=== PATIENT | male | born 1975 | race Caucasian/White ===

== ENCOUNTER 2025-06-16 13:49 | Emergency (ER) | payer OTHER, SELFPAY ==
--- OUTSIDE RECORDS SUMMARY | 2025-06-16 13:55 | XMS_ITS | Clinical Summary ---
Author Organization [facility] [address] Address [address] [place] [address] Phone Care Team Providers [facility] Name Role Phone Daljit Lopez MD Primary Care Provider [phone] Eleonora Leonard Unavailable [phone] Allergies No known active allergies Medications lancets misc 100 each by other route as directed 100 each 1 3 Active Additional Information Patient not taking.Reported on 05/12/2025 omeprazole (PriLOSEC) 20 mg capsule TAKE 1 CAPSULE(20 MG) BY MOUTH DAILY 30 capsule 5 4 Active Additional Information Patient not taking.Reported on 05/12/2025 ergocalciferol (VITAMIN D) 50,000 unit capsuleIndicati ons:Vitamin D Deficiency Take 1 capsule (50,000 Units total) by mouth once a week 12 capsule 4 10/22/20 25 Active Additional Information Patient not taking.Reported on 05/12/2025 gabapentin (NEURONTIN) 300 mg capsuleIndicati ons:Chronic bilateral low back pain without sciatica Take 1 capsule (300 mg total) by mouth 2 (two) times a day 180 capsule 3 4 Active Additional Information Patient not taking.Reported on 05/12/2025 glipiZIDE (GLUCOTROL) 10 mg tabletIndicatio ns:type 2 diabetes mellitus Take 1 tablet (10 mg total) by mouth 2 (two) times a day with lunch and dinner 180 tablet 3 5 05/12/20 26 Active metFORMIN XR (GLUCOPHAGE XR) 500 mg 24 hr tabletIndicatio ns:Type 2 diabetes mellitus with hyperglycemia, with long-term current use of insulin (HCC) Take 2 tablets (1,000 mg total) by mouth 2 (two) times a day with meals 360 tablet 3 5 05/12/20 26 Active atorvastatin (LIPITOR) 40 mg tabletIndicatio ns:Dyslipidemia associated with type 2 diabetes mellitus (HCC) Take 1 tablet (40 mg total) by mouth daily 90 tablet 3 5 Active Dexcom G7 Sensor deviceIndicatio ns:Type 2 diabetes mellitus with hyperglycemia, with long-term current use of insulin (HCC) Use one sensor every 10 days 3 each 11 5 Active Active Problems Problem Noted Date Diagnosed Date Annual physical exam 10/10/2024 Assessment & Plan (10/10/2024 1:19 PM BOOSTER PUMP OPERATOR): In regard to health maintenance, Colonoscopy declined PSA stable DM-annual visual examination and podiatry visits every 3 months advised. Lung CA screening ordered Eat a healthy diet: focus on lean meats and proteins, more fruits, vegetables and whole grains and low in sugars and fats. Limit red meat and avoid processed meat. Maintain a healthy weight; avoid being overweight. Aim for a normal body mass index (BMI) of 18.5-24.9. Help learning to eat healthier, we can set up appointment with federal law clerk/envelope fold operator. Have an active lifestyle, strive for 30 minutes of moderate exercise 5 times a week and strength or resistance training at least twice a week. Use broad-spectrum (UVA+UVB) sunscreen with SPF 30 or greater, is water resistant, limit time spent in the sun (10 am-4pm), wear hat, wear UV protective clothing, wear sunglasses. Never use a tanning bed. Skin that was irradiated may be more sensitive over your lifetime. Do not smoke or chew tobacco; participate in a smoking cessation program. Limit alcohol intake, 1 drink per day for a woman and 2 drinks per day for a man. Mild emphysema 07/19/2022 Assessment & Plan (10/27/2022 6:33 PM BOOSTER PUMP OPERATOR): Patient reports that his cough and shortness of breath have improved significantly. Will use Flovent inhaler as needed. Typically using rescue albuterol inhaler 1-2 times per week. Denies any recent exacerbation/illness. Assessment & Plan (07/19/2022 12:55 PM CDT): Continues to smoke cigarettes but has dropped to 1/2-3/4 PPD. Has now started to vape (to help stop smoking?) 1-2x/hr. Stressed need to stop both. Reviewed mild emphysema on past CT. Referral to Dr Walker. Contact info given to Mr & Mrs Perry. Cough with hemoptysis 03/31/2022 Assessment & Plan (03/31/2022 1:27 PM CDT): Long standing h/o smoking. Relates that he will never stop. Recently started cough w/hemoptysis. CT chest wo contrast ordered. Aware that insurance must authorize CT. He will be called once it is authorized for him to schedule. Aware to call/michaelt msg our office if no call rec'd re: CT. [facility] scheduling # given. Diabetes mellitus with hyperglycemia 12/24/2021 Assessment & Plan (02/17/2025 2:37 PM CDT): Chronic problem. A1c improved from 16.3% 10/04/24 to now 10.2% -Start your medication everyday. You can take all of your metformin at one time (every morning). -glipizide take with meals only--don't take if not eating -toujeo 20 units daily--doesn't matter to me what day. If your blood sugars start to go low--stop the glipizide but keep taking the Metformin & Toujeo. Current medications: Metformin XR 1000mg twice daily with meals Glipizide 10mg twice daily with meals Toujeo 20 units daily DM eye exam due. To call to schedule. UTD on labs. Discussed with Adam Perry: Strive for regular exercise (30min most days) and diet (get at least 4-5 servings of fruit and veggies daily, avoid processed foods, increase lean protein intake and decrease carb portions as well as fruit juices, regular soda & desserts). Watch carbs and simple sugars. Check the blood sugar: Dexcom G7. Check the feet daily for skin breakdown and infection. Assessment & Plan (10/21/2024 10:55 AM BOOSTER PUMP OPERATOR): Chronic , Poorly controlled, worsening Hemoglobin A1c 16.3% Goal A1c at least less than 7% without hypoglycemia - discussed about DM type 2, - patho physiology, short and nursing home complications of uncontrolled DM, diet and exercise , importance on of BS monitoring, medications options - discussed goal BS and A1c targets - advise to start checking BS more often , pt willing to CGM - advise to work on healthy diet, avoid processed foods , increase vegetables and protein and cut back on carb portions and also avoid fruit juices and regular soda and desserts Keep up with good oral hydration - water is best Keep taking Metformin XR the same Start Glipizide 10 mg oral twice daily with meals Start Toujeo insulin 20 units daily , if your morning blood sugars are above 180, go up by 2-4 units every few days ( max dose 30 units ) Schedule an eye exam Work on diet ( cut back on sugary drinks ) Try dexcom G 7 ( sent Rx and gave samples ) Pt willing to try Omnipod insulin pump in future if he has to go on multiple insulin injections Follow up in 2 months Assessment & Plan (10/10/2024 1:21 PM BOOSTER PUMP OPERATOR): Wildly uncontrolled. Discussed the risks of end-organ damage along with coma and with level of blood sugar he is experiencing. He continues to deny having diabetes. Again emphasized the importance of starting insulin immediately and discussed the importance compliance with medication. He adamantly declines any insulin or needles. After long discussion he is agreeable to improving compliance with metformin and increasing the dose. He is also agreeable to schedule with endocrinology. We reviewed red flags. Hopefully he will comply. Will have him follow-up with us in 3 months. Of course sooner for any concerns. Assessment & Plan (10/27/2022 6:32 PM BOOSTER PUMP OPERATOR): Worsening/uncontrolled; Patient not currently taking medications. Lab Results Component Value Date HGBA1C 12.2 10/27/2022 HGBA1C 8.2 (H) 07/11/2022 HGBA1C 7.8 (H) 03/28/2022 Discussed need for compliance with medications, patient to restart metformin a 1000 mg twice daily. Stressed the need to make dietary changes, avoid sweet tea/concentrated sweets and reduce carbs. Declines referral to director of group counseling program. Patient states he has attended diabetic education appointments with his and he knows what changes he needs to make. Patient refuses to check blood sugar as he has a fear of needles, refuses CGM. Will repeat labs/A1c in 3 months and monitor response. Assessment & Plan (07/19/2022 12:53 PM CDT): Copy of results from 07/11/22 given to Adam Perry. Reviewed results at time of appointment. Lab Results Component Value Date HGBA1C 8.2 (H) 07/11/2022 HGBA1C 7.8 (H) 03/28/2022 HGBA1C 7.1 % 12/24/2021 Increased metformin XR from 500mg to 1000mg daily. Reviewed dietary/exercise recommendations. Instructed to perform daily foot check. Reviewed medication side effects & scheduling. Labs ordered; will call with results when received. To make follow up appointment in 3 months. Reviewed red flags; what would warrant further evaluation. Gabapentin 300mg nightly. Assessment & Plan (03/31/2022 9:55 AM CDT): Copy of results from 03/28/22 given to Adam Perry. Reviewed results at time of appointment. Lab Results Component Value Date HGBA1C 7.8 (H) 03/28/2022 HGBA1C 7.1 % 12/24/2021 HGBA1C 6.7 (H) 09/03/2021 Reviewed dietary/exercise recommendations. Instructed to perform daily foot check. Reviewed medication side effects & scheduling. Labs ordered; will call with results when received. To make follow up appointment in 3 months. Reviewed red flags; what would warrant further evaluation. Gabapentin 300mg nightly. Assessment & Plan (12/26/2021 12:27 PM BOOSTER PUMP OPERATOR): Metformin XR 500mg was sent 10/05/21 but he only picked up a few days ago. Has not yet started. Again reviewed med SE & scheduling. Lab Results Component Value Date HGBA1C 7.1 % 12/24/2021 HGBA1C 6.7 (H) 09/03/2021 HGBA1C 6.5 (H) 04/19/2021 Reviewed dietary/exercise recommendations. Instructed to perform daily foot check. Reviewed medication side effects & scheduling. Labs ordered; will call with results when received. To make follow up appointment in 3 months. Reviewed red flags; what would warrant further evaluation. Hyperlipidemia associated with type 2 diabetes sanjiv gaitan 12/24/2021 Assessment & Plan (02/17/2025 2:45 PM CDT): Chronic problem. Currently taking Atorvastatin 40mg. Last lipid panel: 10/04/24 LDL=98, IW=070. Assessment & Plan (10/21/2024 10:52 AM BOOSTER PUMP OPERATOR): Continue Statin therapy Assessment & Plan (10/10/2024 1:19 PM BOOSTER PUMP OPERATOR): LDL 98. Will work on getting blood glucose under control at this time. More urgent matter. Assessment & Plan (10/27/2022 6:33 PM BOOSTER PUMP OPERATOR): 10/27/2022 TC 200 HDL 24 TRG to 0 5 LDL 135 Patient to restart statin therapy. Will plan to repeat labs prior to follow-up appointment in 3 months. Assessment & Plan (07/19/2022 11:39 AM CDT): Copy of results from 07/11/22 given to Adam Perry. Reviewed results at time of appointment. 04/19/21 A1C=6.5% CD=230 HDL=36 FZ=086 RMX=502 TC/HDL=5 IUIHFP=288 09/03/21 A1C=6.7% KR=426 HDL=32 VT=284 SRO=639 TC/HDL=7 RTE=487 D=13 12/24/21 A1C=7.1% LE=913 HDL=34 CF=944 VPS=915 TC/HDL=5.1 FZLHXP=746 03/28/22 A1C=7.8% XJ=738 hdl=29 ok=383 ldl=92 TC/HDL=5 PLSZLB=785 07/11/22 A1C=8.2% KN=426 HDL=24 SN=304 LDL=58 TC/HDL=6 KNKZMA=095 Reviewed improvement in lipid panel. Atorvastatin 40mg daily. Patient should focus on limiting bad fats in the diet and using exercise as a way to improve the lipid status. Secondary prevention. Reviewed medications. Denies any statin Ses. Reviewed diet/exercise recommendations. Reviewed red flags. Assessment & Plan (03/31/2022 9:56 AM CDT): Copy of results from 03/28/22 given to Adam Perry. Reviewed results at time of appointment. 04/19/21 A1C=6.5% RB=365 HDL=36 TG=452 OTR=365 TC/HDL=5 PYKGOJ=371 09/03/21 A1C=6.7% ZG=001 HDL=32 EN=060 TYK=883 TC/HDL=7 LNJ=502 D=13 12/24/21 A1C=7.1% LM=079 HDL=34 NB=325 FXL=751 TC/HDL=5.1 EYPDBX=553 03/28/22 A1C=7.8% YP=349 hdl=29 bc=920 ldl=92 TC/HDL=5 VQTFHX=738 Reviewed improvement in lipid panel. Atorvastatin 40mg daily. Patient should focus on limiting bad fats in the diet and using exercise as a way to improve the lipid status. Secondary prevention. Reviewed medications. Denies any statin Ses. Reviewed diet/exercise recommendations. Reviewed red flags. Assessment & Plan (12/26/2021 12:27 PM BOOSTER PUMP OPERATOR): 03/02/20 WX=759 HDL=28 TG=90 AOA=050 TC/HDL=7.1 GEF=113 04/19/21 ES=067 HDL=36 BU=911 AJH=636 TC/HDL=5 VSNUNL=206 09/03/21 WN=349 HDL=32 GO=368 HEF=044 TC/HDL=7 YHQ=789 D=13 12/24/21 ES=349 HDL=34 DT=327 OON=563 TC/HDL=5.1 UESBRD=723 Improved Lipid panel. Reviewed that LDL less than 70 is optimal. Atorvastatin 20mg currently. Will increase to atorvastatin 40mg daily. Patient should focus on limiting bad fats in the diet and using exercise as a way to improve the lipid status. Secondary prevention. Reviewed medications. Denies any statin Ses. Reviewed diet/exercise recommendations. Reviewed red flags. The 10-year ASCVD risk score (Ros EL Jr., et al., 2013) is: 17.2% Values used to calculate the score: Age: 46 years Sex: Male Is Non- : No Diabetic: Yes Tobacco smoker: Yes Systolic Blood Pressure: 130 mmHg Is BP treated: No HDL Cholesterol: 32 mg/dL Total Cholesterol: 176 mg/dL Increased from 9.3% 09/03/21 Vitamin D deficiency 12/24/2021 Assessment & Plan (10/10/2024 1:19 PM BOOSTER PUMP OPERATOR): Highly encouraged compliance with supplement. Will continue to monitor. Assessment & Plan (07/19/2022 11:40 AM CDT): Copy of results 07/11/22 given to Adam Perry. Reviewed results at time of appointment. Component Ref Range & Units 8 d ago 3 mo ago 6 mo ago 10 mo ago Vitamin D 25-OH 30 - 80 ng/mL 17 Low 47 CM 16 Low CM 13 Low Will resume ergocalciferol 50,000IU weekly. To repeat in 3 mos. Assessment & Plan (03/31/2022 9:57 AM CDT): Copy of results from 03/28/22 given to Adam Perry. Reviewed results at time of appointment. Vit D checked on 03/28/22=47; improved from 13. Will switch to otc vitamin D3 2000 international units daily Assessment & Plan (12/26/2021 12:38 PM BOOSTER PUMP OPERATOR): Last vitamin D level=13 09/03/21. Has picked up ergocalciferol from 08/2021 labs (just picked up recently). Has not started taking yet. Stressed need to start medication. Reviewed that it is weekly medication. Shortness of breath 12/13/2021 Assessment & Plan (12/13/2021 5:53 PM BOOSTER PUMP OPERATOR): medrol dose pack & albuterol inhaler sent. Stressed need to stop smoking. CXR ordered; will go to [facility] to have completed. Reviewed med Ses & scheduling. Instructed in albuterol inhaler use. Aware to rinse mouth after use. Reviewed red flags; what would warrant rtc or ED for further eval. Will see him 12/24/21 on Family side of practice. Will discuss further testing at that time (lung cancer screening CT, PFTs). Cough 12/13/2021 Assessment & Plan (03/31/2022 1:28 PM CDT): Will order CT chest . Does not meet criteria for LCS; discussed w/Nuris SÁNCHEZ onc navigator. Needs CT chest wo contrast. flovent 110mcg 2 puffs bid sent. Aware to rinse mouth after use. NOT rescue. To be used BID regardless if no cough/SOB. Stressed need to stop smoking. Reviewed red flags. Assessment & Plan (12/26/2021 12:40 PM BOOSTER PUMP OPERATOR): Has completed medrol dose pack. Uses inhaler occasionally. Has not yet completed CXR. Stressed need to stop smoking. Relates that he will have CXR completed. [facility]. Assessment & Plan (12/13/2021 5:54 PM BOOSTER PUMP OPERATOR): medrol dose pack & albuterol inhaler sent. Stressed need to stop smoking. CXR ordered; will go to [facility] to have completed. Reviewed med Ses & scheduling. Instructed in albuterol inhaler use. Aware to rinse mouth after use. Reviewed red flags; what would warrant rtc or ED for further eval. Will see him 12/24/21 on Family side of practice. Will discuss further testing at that time (lung cancer screening CT, PFTs). Muscle cramps 09/02/2021 Assessment & Plan (09/02/2021 10:23 PM BOOSTER PUMP OPERATOR): H/o muscle cramps in summer working in [employer] at [employer] in heat. Does not taken K+ as frequently during cooler months. 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 Discussed steps that need to be followed for helping w/chronic back pain. Discussed weight loss/decrease in abdominal size to help back pain. Would like FMLA completed. Discussed that 1-2 days 1-2x/month at max. If more needed than that--he will need to get from Dr Montoya & follow up for further treatment. Will complete FMLA once he brings it in. Assessment & Plan (01/29/2021 10:08 PM CDT): FMLA paperwork brought in. See scanned media. Will fax to [facility] Roth. Chronic bilateral low back pain without sciatica 03/02/2020 Assessment & Plan (10/27/2022 6:29 PM BOOSTER PUMP OPERATOR): Chronic; pain is unchanged. Patient continues gabapentin 300 mg twice daily. Denies any bowel or bladder dysfunction, saddle anesthesia. Aware to follow-up immediately with any changes in symptoms. Will continue to monitor. Assessment & Plan (03/31/2022 9:54 AM CDT): Chronic, ongoing LBP. Has seen neurosurg Dr Montoya but declined PT. Discussed that he needs to try PT. If no improvement he should contact Dr Montoya that it is not helping. Discussed that there are certain criteria/steps that healthcare will work through to help w/back pain. Discussed need to lose weight to help back pain. Has lost 10#. Discussed re-engagement w/neurosurg, PT, core strengthening exercises. Encouraged otc tylenol/ibuprofen prn back pain. Discussed ice, gentle ROM, increased activity/core strengthening & other non pharm methods of pain relief. Denies bowel/bladder dysfunction. Denies cauda equina. Reviewed red flags. Assessment & Plan (12/26/2021 12:41 PM BOOSTER PUMP OPERATOR): Chronic, ongoing LBP. Has seen neurosurg Dr Montoya but declined PT. Discussed need to lose weight to help back pain. Discussed re-engagement w/neurosurg, PT, core strengthening exercises. Encouraged otc tylenol/ibuprofen prn back pain. Discussed ice, gentle ROM, increased activity/core strengthening & other non pharm methods of pain relief. Denies bowel/bladder dysfunction. Denies cauda equina. Reviewed red flags. Assessment & Plan (09/02/2021 10:16 PM BOOSTER PUMP OPERATOR): Has been engaged w/Dr Montoya but did not want to complete formal PT as he suggested. Discussed steps that need to be followed for helping w/chronic back pain. Discussed weight loss/decrease in abdominal size to help back pain. Would like FMLA completed. Discussed that 1-2 days 1-2x/month at max. If more needed than that--he will need to get from Dr Montoya & follow up for further treatment. Mr Perry needs to re-engage w/Dr Montoya. Encouraged otc tylenol/ibuprofen prn back pain. Discussed ice, gentle ROM, increased activity/core strengthening & other non pharm methods of pain relief. Denies bowel/bladder dysfunction. Denies cauda equina. Reviewed red flags. Assessment & Plan (03/02/2020 1:49 PM CDT): H/o chronic back pain since 20s. Takes naproxen bid. L spine xr ordered; will contact w/results once rec'd. States that he has h/o bulging discs. Would like intermittent FMLA completed. Will bring in paperwork. Refused influenza vaccine 12/09/2019 Assessment & Plan (07/19/2022 12:45 PM CDT): Discussed and the patient refuses immunization today. Educated regarding the need to vaccinate for personal protection and to limit the viruses in the community to protect those most vulnerable. Assessment & Plan (12/26/2021 12:25 PM BOOSTER PUMP OPERATOR): Discussed and the patient refuses immunization today. Educated regarding the need to vaccinate for personal protection and to limit the viruses in the community to protect those most vulnerable. Assessment & Plan (09/02/2021 10:23 PM BOOSTER PUMP OPERATOR): Discussed and the patient refuses immunization today. Educated regarding the need to vaccinate for personal protection and to limit the viruses in the community to protect those most vulnerable. Assessment & Plan (12/09/2019 10:03 AM BOOSTER PUMP OPERATOR): Discussed and the patient refuses immunization today. Educated regarding the need to vaccinate for personal protection and to limit the viruses in the community to protect those most vulnerable. Tobacco dependence due to cigarettes 12/09/2019 Assessment & Plan (10/27/2022 6:28 PM BOOSTER PUMP OPERATOR): Encouraged complete cessation. Patient is trying to cut back, recommended use of nicotine replacement products. Assessment & Plan (07/19/2022 11:44 AM CDT): Has been trying to cut back on smoking. Last carton took 2 weeks to smoke. Has been vaping now also 1-2x/hr. Now going 3-5hr w/o smoking a cigarette. Now smoking less than 1 PPD. Maybe 1/2-3/4 PPD. Assessment & Plan (03/31/2022 9:53 AM CDT): Continues to smoke 1 PPD (since 14 y/o). No longer vapes. Precontemplative. Encouraged complete smoking cessation. Discussed different types of medications & srzs-vpa-tlvtzyf aides to help with cessation. Assessment & Plan (12/26/2021 12:25 PM BOOSTER PUMP OPERATOR): Continues to smoke 1 PPD (since 14 y/o). No longer vapes. Precontemplative. Encouraged complete smoking cessation. Discussed different types of medications & ubdo-dfu-dnewyxf aides to help with cessation. Assessment & Plan (12/13/2021 5:54 PM BOOSTER PUMP OPERATOR): Smokes 1 PPD since 14y/o (30 yrs). Precontemplative. Encouraged complete smoking cessation. Discussed different types of medications & wmcr-hjw-lhchhmq aides to help with cessation. Assessment & Plan (01/29/2021 10:15 PM CDT): Continues to smoke 1 PPD as well as electronic cigarette. Again reviewed dangers of smoking. MOP had COPD & aware of the disease process. Precontemplative. Encouraged complete smoking cessation. Discussed different types of medications & qgpv-bdu-qsfodwf aides to help with cessation. Assessment & Plan (03/02/2020 1:46 PM CDT): Concerned w/coughing. Fearful of COPD (MOP had COPD). Active. Encouraged complete smoking cessation. Discussed different types of medications & atkq-rhy-etolhcx aides to help with cessation. Would like to trial chantix. Aware to start medication 1 wk before start date. Plan to take 12 weeks initially and then another 12 weeks for maintenance. Reviewed medication side effects and scheduling. Aware to call for refills before start pack is completed to assure no interruption in medications. Reviewed red flags. Reviewed Black Box Warning: Postmarketing reports of serious or clinically significant neuropsychiatric adverse events have been reported in patients treated with CHANTIX. These included changes in mood (including depression and sade), psychosis, hallucinations, paranoia, delusions, homicidal ideation, aggression, hostility, agitation, anxiety, and panic, as well as suicidal ideation, suicide attempt, and completed suicide. Recommend close observation for development of such symptoms. Advised patient to stop medication and seek immediate medical attention if experiencing such adverse events. Assessment & Plan (12/09/2019 10:04 AM BOOSTER PUMP OPERATOR): Precontemplative. Encouraged complete smoking cessation. Discussed different types of medications & pfcl-rwh-mcqywrh aides to help with cessation. Resolved Problems Problem Noted Date Diagnosed Date Resolved Date Encounter for vitamin deficiency screening 09/02/2021 12/26/2021 Assessment & Plan (09/02/2021 10:17 PM BOOSTER PUMP OPERATOR): Taking vitamin D otc. Will check D level. Aware to check his mychart account for results. Class 1 obesity due to exces s calories with serious comorbidity and body mass index (BMI) of 32.0 to 32.9 in adult 01/29/2021 10/27/2022 Assessment & Plan (07/19/2022 12:53 PM CDT): Reviewed need to lose weight, reviewed health benefits. Reviewed recommendations for daily intake & activity 20-30 minutes/day. Discussed healthy diet and importance of regular physical activity. Assessment & Plan (03/31/2022 9:54 AM CDT): Reviewed need to lose weight, reviewed health benefits. Reviewed recommendations for daily intake & activity 20-30 minutes/day. Discussed healthy diet and importance of regular physical activity. Has lost 10# on his scale, 7# on our scale. Assessment & Plan (12/26/2021 12:26 PM BOOSTER PUMP OPERATOR): Reviewed need to lose weight, reviewed health benefits. Reviewed recommendations for daily intake & activity 20-30 minutes/day. Discussed healthy diet and importance of regular physical activity. Assessment & Plan (09/02/2021 10:16 PM BOOSTER PUMP OPERATOR): Weight trending upward. Reviewed need to lose weight, reviewed health benefits. Reviewed recommendations for daily intake & activity 20-30 minutes/day. Discussed healthy diet and importance of regular physical activity. Assessment & Plan (01/29/2021 2:16 PM CDT): Reviewed need to lose weight, reviewed health benefits. Reviewed recommendations for daily intake & activity 20-30 minutes/day. Discussed healthy diet and importance of regular physical activity. Hyperglycemia 01/29/2021 12/26/2021 Assessment & Plan (09/02/2021 10:19 PM BOOSTER PUMP OPERATOR): Lab Results Component Value Date HGBA1C 6.5 (H) 04/19/2021 Reviewed elevated a1c from March. a1c ordered. Will check mychart for results once drawn. Reviewed meds if A1c remains elevated. ( diabetic). Discussed diet/activity changes. Stressed need to improve lifestyle Assessment & Plan (01/29/2021 10:16 PM CDT): H/o elevated glucose. Will check A1c. Carpal tunnel syndrome on left 06/26/2020 01/29/2021 Overview (06/26/2020): Added automatically from request for surgery [id number] Carpal tunnel syndrome of left wrist 06/25/2020 01/29/2021 Cubital tunnel syndrome on left 06/25/2020 01/29/2021 Acute medial meniscus tear of left knee 03/30/2020 01/29/2021 Overview (03/30/2020): Added automatically from request for surgery [id number] Internal derangement of left knee 03/30/2020 01/29/2021 Overview (03/30/2020): Added automatically from request for surgery [id number] BMI 30.0-30.9,adult 03/02/2020 01/30/20 21 Assessment & Plan (03/02/2020 1:49 PM CDT): Reviewed need to lose weight, reviewed health benefits. Reviewed recommendations for daily intake & activity 20-30 minutes/day. Discussed healthy diet and importance of regular physical activity. [facility] 03/02/2020 Assessment & Plan (12/09/2019 10:04 AM BOOSTER PUMP OPERATOR): -reviewed screening guidelines: no family history of breast or colon cancer. Denies self-testicular exam monthly. Encouraged monthly self checks. Colonoscopy recommended at 50 years of age. -UTD on immunizations. -discussed diet/exercise: daily recommendations of 20-30 minutes physical activity daily, watch fat/sugar intake. -denies safety/violence. Wears seatbelt. Aware to not text/talk and drive. -does not smoke nor drink ETOH -lives at home with supportive family Encounter for screening for lipoid disorders 0 01/29/2021 Assessment & Plan (12/09/2019 2:36 PM BOOSTER PUMP OPERATOR): 12/09/19 BR=924 HDL=26 DM=580 YAU=529 TC/HDL=7.9 DBP=069 BMI 32.0-32.9,adult 12/09/2019 01/30/20 21 Assessment & Plan (12/09/2019 10:04 AM BOOSTER PUMP OPERATOR): Reviewed need to lose weight, reviewed health benefits. Reviewed recommendations for daily intake & activity 20-30 minutes/day. Discussed healthy diet and importance of regular physical activity. Bilateral medial epicondylitis of elbow joint 12/09/19 20 01/29/2021 Assessment & Plan (12/09/2019 2:35 PM BOOSTER PUMP OPERATOR): Discussed counterforce bracing. 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 To wear with activity at minimum. Ibuprofen 800 mg three times daily as needed; take with food. Reviewed stretching/home exercise program. Discussed possibility of PT evaluation if no improvement with bracing & ibuprofen. To call in 2-3 weeks if no improvement & will set up PT evaluation. Mixed hyperlipidemia 12/09/2019 022 Assessment & Plan (12/24/2021 9:56 AM BOOSTER PUMP OPERATOR): 03/02/20 OF=602 HDL=28 TG=90 CIF=443 TC/HDL=7.1 JVS=116 04/19/21 VF=486 HDL=36 WK=293 SYI=679 TC/HDL=5 KXKFJH=343 09/03/21 QN=135 HDL=32 YM=815 SFY=775 TC/HDL=7 COO=324 D=13 12/24/21 UA=113 HDL=34 AD=387 FRY=799 TC/HDL=5.1 JKPPWS=964 Atorvastatin 20mg daily. Patient should focus on limiting bad fats in the diet and using exercise as a way to improve the lipid status. Secondary prevention. Reviewed medications. Denies any statin Ses. Reviewed diet/exercise recommendations. Reviewed red flags. The 10-year ASCVD risk score (Roslatricia EL Jr., et al., 2013) is: 9.3% Values used to calculate the score: Age: 46 years Sex: Male Is Non- : No Diabetic: No Tobacco smoker: Yes Systolic Blood Pressure: 130 mmHg Is BP treated: No HDL Cholesterol: 32 mg/dL Total Cholesterol: 176 mg/dL Assessment & Plan (09/02/2021 10:22 PM BOOSTER PUMP OPERATOR): Atorvastatin 20mg daily. Has not taken meds in some time. Refilled today. 12/09/19 CN=919 HDL=26 SF=573 FHU=360 TC/HDL=7.9 ERC=019 03/02/20 MT=863 HDL=28 TG=90 MAO=597 TC/HDL=7.1 OVV=891 04/19/21 LM=268 HDL=36 KA=805 DNS=284 TC/HDL=5 MQASFR=721 The 10-year ASCVD risk score (Ros EL Jr., et al., 2013) is: 7.3% Values used to calculate the score: Age: 46 years Sex: Male Is Non- : No Diabetic: No Tobacco smoker: Yes Systolic Blood Pressure: 120 mmHg Is BP treated: No HDL Cholesterol: 36 mg/dL Total Cholesterol: 178 mg/dL We will check labs and make adjustments to medications as needed. Patient should focus on limiting bad fats in the diet and using exercise as a way to improve the lipid status. Secondary prevention. Reviewed medications. Lipid panel ordered; will call w/results when rec'd. Denies any statin Ses. Reviewed diet/exercise recommendations. Reviewed red flags. Assessment & Plan (01/29/2021 10:11 PM CDT): 12/09/19 IC=993 HDL=26 MR=282 JIA=741 TC/HDL=7.9 SOC=308 03/02/20 TV=813 HDL=28 TG=90 MNP=345 TC/HDL=7.1 GFE=342 Reviewed past lipid panels. Was to be taking statins d/t elevated cholesterol panel. Has not been taking but denies any SE from medication. Reviewed increased risk of SD/CVA d/t uncontrolled lipids. Discussed need to watch diet & improve diet. Will again resume statin & check in 3 mos Assessment & Plan (03/02/2020 1:47 PM CDT): 12/09/19 ZR=823 HDL=26 LB=966 DQK=090 TC/HDL=7.9 LMC=688 03/02/20 YW=747 HDL=28 TG=90 UHB=654 TC/HDL=7.1 NVI=759 Copy of results as well as written explanations given. Will resume atorvastatin. To take at HS. Will recheck in 3 mos. Reviewed dietary changes necessary to decrease LDL & increase HDL. Patient should focus on limiting bad fats in the diet and using exercise as a way to improve the lipid status. Secondary prevention. Reviewed medications. Lipid panel ordered; will call w/results when rec'd. Denies any statin Ses. Reviewed diet/exercise recommendations. Reviewed red flags. Assessment & Plan (12/09/2019 2:37 PM BOOSTER PUMP OPERATOR): 12/09/19 EC=092 HDL=26 JR=732 AHA=734 TC/HDL=7.9 TKD=817. Copy of results & written explanations given to Mr Perry. Reviewed lifestyle/dietary changes to improve lipid profile. Atorvastatin 20mg sent. Discussed med SE & scheduling. To rtc in 3 mos for re-eval. Will have repeat lipid drawn prior to that appt. Left medial knee pain 12/09/20192020 Assessment & Plan (12/09/2019 2:38 PM BOOSTER PUMP OPERATOR): Referral to [facility] for knee pain. Has seen Dr Hanna in past. Contact info for [facility] given to Mr Perry. Aware that their office should call him to set up appt. Complex tear of medial menis cus of left knee as current injury 02/04/2019 01/29/2021 Overview (02/04/2019): Added automatically from request for surgery [id number] Knee pain 11/25/2014 12/09/2019 Overview (01/26/2017): Knee pain Encounters Date Type Department Care Team Description 05/12/2025 3:00 PM CDT Office Visit [facility] Diabetes and Endocrinology [address] [place] [phone] Lovely Mathis MD Type 2 diabetes mellitus with hyperglycemia, with long-term current use of insulin (HCC) (Primary Dx); Dyslipidemia associated with type 2 diabetes mellitus (HCC); Hyperlipidemia associated with type 2 diabetes mellitus (HCC) from Last 3 Months Immunizations Immunization Administration Dates Next Due Influenza, Unspecified 10/10/2024(Deferr ed: Patient Refused),10/10/2024(Deferred: Patient Refused),06/23/2024(Deferred: Patient Refused),10/27/2022(Deferred: Patient Refused),07/19/2022(Deferred: Patient Refused),12/24/2021(Deferred: Patient Refused),09/02/2021(Deferred: Patient Refused),07/23/2021(Deferred: Patient Refused),07/23/2021(Deferred: Patient Refused),04/22/2021(Deferred: Patient Refused),07/23/2020(Deferred: Patient Refused),07/23/2020(Deferred: Patient Refused),07/23/2020(Deferred: Patient Refused),07/23/2020(Deferred: Patient Refused),12/09/2019(Deferred: Patient Refused),10/23/2019(Deferred: Patient Refused),07/23/2019(Deferred: Patient Refused),07/23/2019(Deferred: Patient Refused),07/23/2018(Deferred: Patient Refused) Pfizer SARS-CoV-2 Monovalent Vaccination (5-11 Yrs) 11/22/2021,11/01/2021 Pneumococcal Polysaccharide PPV23 07/19/2022(Def erred: Patient Refused) Surgical History Surgery Date Site/Laterality Comments KNEE ARTHROSCOPY Right Arthroscopy knee OTHER SURGICAL HISTORY Arthrocentesis of the left shoulder subacromial space KNEE ARTHROSCOPY Right VASECTOMY KNEE ARTHROSCOPY W/ MENISCECTOMY Left ELBOW SURGERY 05/23/2020 - 06/22/2020 Left HAND SURGERY 05/23/2020 - 06/22/2020 Left KNEE ARTHROSCOPY W/ LATERAL RELEASE 04/06/2020 Medical History Medical History Date Comments Calculus of kidney kidney stones Hx Other Medical L rotator cuff surgery in 2012; Comments: [facility] 11/25/2014 - Lumbar disc herniation and bulgi ng, L4, L5, S1 Plantar fasciitis Knee torn cartilage, left 2019 Arthritis Obesity Acute medial meniscus tear o f left knee 03/30/2020 Added automatically from req uest for surgery [id number] Carpal tunnel syndrome of left wrist 06/25/2020 Carpal tunnel syndrome on left 06/26/2020 A dded automatically from request for surgery [id number] Complex tear of medial menis cus of left knee as current injury 02/04/2019 Added automatically from r equest for surgery [id number] Cubital tunnel syndrome on left 06/25/2020 Diabetes mellitus (HCC) Family History Medical History Relation Name Comments Heart attack Brother COPD Mother vicente perry COPD; Relation Name Status Comments Brother Alive Father (Age 69) Mother vicente perry (Age 73) Sister Alive Social History Tobacco Use Types Packs/Day Years Used Date Smoking Tobacco: Some Days Cigarettes 1 35.6 Started: 1989 Smokeless Tobacco: Never Comments:1 pack every 2-3 da ys Alcohol Use Standard Drinks/Week Comments Yes 0 (1 standard drink = 0.6 oz pur e alcohol) rarely AUDIT-C Answer Date Recorded Q1: How often do you have a drink containing alc ohol? Monthly or less 01/24/2023 Q2: How many drinks containi ng alcohol do you have on a typical day when you are drinking? 1 or 2 01/24/2023 Q3: How often do you have si x or more drinks on one occasion? Never 01/24/2023 PHQ-2 Answer Date Recorded PHQ-2 Total Score (If total score is 3 or more points, staff should administer the PHQ-9) 0 10/10/2024 Sex and Gender Information Value Date Recorded Sex Assigned at Not on file Legal Sex Male 10:53 AM BOOSTER PUMP OPERATOR Gender Identity Not on file Sexual Orientation Straight 12/09/2019 12 :23 PM BOOSTER PUMP OPERATOR Obstetrics History Last Filed Vital Signs Vital Sign Reading Time Taken Comments Blood Pressure 130/70 05/12/2025 3:10 PM CDT Pulse 76 05/12/2025 3:10 PM CDT Temperature 36.7 C (98.1 F) 10/10/2024 12:24 PM BOOSTER PUMP OPERATOR Respiratory Rate 15 05/12/2025 3:10 PM CDT Oxygen Saturation 97% 10/10/2024 12:24 PM BOOSTER PUMP OPERATOR Inhaled Oxygen Concentration - - Weight 109.8 kg (242 lb) 05/12/2025 3:10 PM CDT Height 195.6 cm (6' 5) 05/12/2025 3:10 PM CDT Body Mass Index 28.7 05/12/2025 3:10 PM CDT Plan of Treatment Health Maintenance Due Date Last Done Comments Hepatitis C Screening 1973 Dilated Eye Exam 1973 DTaP/Tdap/Td Vaccine (1 - Tdap) 1984 Hepatitis B Screening 1991 Pneumococcal vaccine <65 (1 of 2 - PCV) 1992 Zoster Vaccine (1 of 2) 2023 Covid-19 Vaccine (3 - season) 2024 11/22/2021, 11/22/2021, 11/01/2021, Additional history exists Regular Well Visit/Exam 18-64 09/28/2024 09/28/2023 Influenza Vaccine (#1) 2025 Albumin Creatinine Ratio, Urine 10/04/2025 10/04/2024, 05/16/2023, 09/03/2021 Lipid Panel 10/04/2025 10/04/2024, 120 04/2023, 10/27/2022, Additional history exists eGFR 10/04/2025 10/04/2024, 04/2023, 05/16/2023, Additional history exists Depression Screening 10/10/2025 10/10/2024, 09/28/2023, 01/24/2023, Additional history exists Lung Cancer Screening 11/07/2025 11/06/2024 Hemoglobin A1C 11/12/2025 05/12/2025, 04/2 05/2025, 10/04/2024, Additional history exists Foot Exam 02/17/2026 02/17/2025, 09/24, 10/10/2024, Additional history exists Colon Cancer Screening-Colonoscopy 09/28/2026 Postponed from 1973 (Patient declined, but will receive in the future) Prostate Cancer Screening-PSA 10/04/2026 10/04/2024, 09/28/2023 Procedures Procedure Name Priority Date/Time Associated Diagnosis Comments POCT HEMOGLOBIN A1C Routine 05/12/2025 3:12 PM CDT Type 2 diabetes mellitus with hyperglycemia, with long-term current use of insulin (HCC) POCT GLUCOSE Routine 05/12/2025 3:12 PM CDT Type 2 diabetes mellitus with hyperglycemia, with long-term current use of insulin (HCC) CT LUNG CANCER SCREENING Schedule Routine, Read Routine (OP Routine) 11/06/2024 5:10 PM BOOSTER PUMP OPERATOR Nicotine dependence, cigarettes, uncomplicated EGFR Routine 10/04/2024 8:24 AM BOOSTER PUMP OPERATOR Type 2 diabetes mellitus with stage 1 chronic kidney disease, without long-term current use of insulin (HCC) Dyslipidemia associated with type 2 diabetes mellitus (HCC) Hypertension associated with diabetes (HCC) Prostate cancer screening Vitamin D deficiency LIPID PANEL Routine 10/04/2024 8:24 AM BOOSTER PUMP OPERATOR Type 2 diabetes mellitus with stage 1 chronic kidney disease, without long-term current use of insulin (HCC) Dyslipidemia associated with type 2 diabetes mellitus (HCC) Hypertension associated with diabetes (HCC) Prostate cancer screening Vitamin D deficiency ALBUMIN CREATININE RATIO, URINE Routine 10/04/2024 8:24 AM BOOSTER PUMP OPERATOR Type 2 diabetes mellitus with stage 1 chronic kidney disease, without long-term current use of insulin (HCC) Dyslipidemia associated with type 2 diabetes mellitus (HCC) Hypertension associated with diabetes (HCC) Prostate cancer screening Vitamin D deficiency PSA SCREEN Routine 10/04/2024 8:24 AM BOOSTER PUMP OPERATOR Type 2 diabetes mellitus with stage 1 chronic kidney disease, without long-term current use of insulin (HCC) Dyslipidemia associated with type 2 diabetes mellitus (HCC) Hypertension associated with diabetes (HCC) Prostate cancer screening Vitamin D deficiency from Last 3 Months or Most Recently Relevant to Health Maintenance Results * (ABNORMAL) POCT hemoglobin A1c (05/12/2025 3:12 PM CDT) Hemoglobin A1C, POC 13.3(A) 4.0 - 5.6 % Blood 05/12/2025 3:12 PM CDT Lovely Hunter MD POINT OF CARE TEST ORDERABLES Final Result * POCT glucose (05/12/2025 3:12 PM CDT) Glucose Blood, POC 414 Normal Fasting 70 - 100, Random <200 mg/dL Blood 05/12/2025 3:12 PM CDT Lovely Hunter MD POINT OF CARE TEST ORDERABLES Final Result * CT Lung Cancer Screening (11/06/2024 5:10 PM BOOSTER PUMP OPERATOR) Anatomical Region Laterality Modality Chest N/A Computed Tomogra phy 11/08/2024 10:3 7 AM BOOSTER PUMP OPERATOR Narrative 11/08/2024 10:43 AM BOOSTER PUMP OPERATOR EXAM DESCRIPTION: CT LUNG CANCER SCREENING REASON FOR STUDY: Screening CT of the chest in a current smoker with a 35 pack year smoking history. Additional history: None. TECHNIQUE: Low dose CT scan of the chest was performed without intravenous contrast using helical scanning technique. The exam extends from the lung apices through the lung bases. Automatic exposure control was used as a dose optimization technique. NOTE: This study was performed for the specific purposes of lung cancer screening and is not an alternative to diagnostic chest CT. RADIATION DOSE: CT dose index volume (CTDIvol) = 1.77 mGy COMPARISON: 04/30/2022 FINDINGS: SMOKING RELATED LUNG DISEASE: Minimal emphysema. Trace pleuroparenchymal scarring. Mild central bronchial wall thickening. LUNG NODULES: No suspicious pulmonary nodule. CORONARY ARTERY CALCIFICATION: Present OTHER: No pneumonic consolidation in either lung. No effusion or pneumothorax. There is mild subsegmental scarring/atelectasis. The central airways are patent. Visualized thyroid gland appears grossly stable. There are scattered subcentimeter short axis mediastinal and hilar lymph nodes. No new lymphadenopathy. The heart is normal in size without pericardial effusion. The thoracic aorta is normal in caliber. No axillary lymphadenopathy. Scattered nodes are stable. The chest wall is unremarkable. Visualized upper abdomen limited in assessment due to low-dose technique and artifact. Visualized portions of the adrenal glands appear grossly stable. No acute osseous abnormality. Thoracic spondylosis and degenerative disc disease. IMPRESSION: No suspicious pulmonary nodule. Minimal emphysema. Coronary artery calcifications. Additional findings as above. Lung-RADS category 1: Negative. Recommendation: Low dose Screening CT of chest in 12 months. THIS IS AN ELECTRONICALLY VERIFIED FINAL REPORT 11/08/2024 10:43 AM - Electronically signed by Kelly Wolfe M.D. TW: JENNIFER Report ID: [id number] Reading Location: [id number] Procedure Note Kelly Wolfe MD - 11/08/2024 EXAM DESCRIPTION: CT LUNG CANCER SCREENING REASON FOR STUDY: Screening CT of the chest in a current smoker with a35 pack year smoking history. Additional history: None. TECHNIQUE: Low dose CT scan of the chest was performed without intravenous contrast using helical scanning technique. The exam extends from the lung apices through the lung bases. Automatic exposure control was used as adose optimization technique. NOTE: This study was performed for the specific purposes of lung cancer screening and is not an alternative to diagnostic chest CT. RADIATION DOSE: CT dose index volume (CTDIvol) = 1.77 mGy COMPARISON: 04/30/2022 FINDINGS: SMOKING RELATED LUNG DISEASE: Minimal emphysema. Tracepleuroparenchymal scarring. Mild central bronchial wall thickening. LUNG NODULES: No suspicious pulmonary nodule. CORONARY ARTERY CALCIFICATION: Present OTHER: No pneumonic consolidation in either lung. No effusion or pneumothorax. There is mild subsegmental scarring/atelectasis. Thecentral airways are patent. Visualized thyroid gland appears grossly stable.There are scattered subcentimeter short axis mediastinal and hilar lymph nodes.No new lymphadenopathy. The heart is normal in size without pericardial effusion. The thoracic aorta is normal in caliber. No axillary lymphadenopathy. Scattered nodes are stable. The chest wall isunremarkable. Visualized upper abdomen limited in assessment due to low-dose techniqueand artifact. Visualized portions of the adrenal glands appear grosslystable. No acute osseous abnormality. Thoracic spondylosis and degenerative disc disease. IMPRESSION: No suspicious pulmonary nodule. Minimal emphysema. Coronary artery calcifications. Additional findings as above. Lung-RADS category 1: Negative. Recommendation: Low dose Screening CT of chest in 12 months. THIS IS AN ELECTRONICALLY VERIFIED FINAL REPORT 11/08/2024 10:43 AM - Electronically signed by Kelly Wolfe M.D. TW: JENNIFER Report ID: [id number] Reading Location: [place] [id number] us Meenu Gant NP IM CT PROCEDURES Final Re sult * eGFR (10/04/2024 8:24 AM BOOSTER PUMP OPERATOR) eGFR >90 >=60 mL/min/1. 73 m2 Comment: Interpretive Data Reference Interval Normal >/= 90 mL/min/1.73m2 Mildly decreased* 60 - 89 mL/min/1.73m2 Mildly to moderately decreased 45 - 59 mL/min/1.73m2 Moderately to severely decreased 30 - 44 mL/min/1.73m2 Severely decreased 15 - 29 mL/min/1.73m2 Kidney Failure < 15 mL/min/1.73m2 *Relative to young adult level Estimated glomerular filtration rate is determined by the 2020 CKD-EPI equation recommended by the National Kidney Foundation (A Unifying Approach to GFR Estimation: Recommendations of the NKF-ASK Task Force on Reassessing the Inclusion of Race in Diagnosing Kidney Disease, JASN 2020). The CKD-EPI equation should not be used for patients with unstable renal function and has not been validated in children and those over 70. Current interpretive data was last reviewed 2021. Testing performed by: [address] [id number] Blood 10/04/2024 8:24 AM BOOSTER PUMP OPERATOR 10/04/2024 12:02 PM BOOSTER PUMP OPERATOR Meenu Gant DIRECTOR DANCE LAB BLOOD ORDERABLES Final Result [facility] Department of Laboratories [place] [phone] * PSA screen (10/04/2024 8:24 AM BOOSTER PUMP OPERATOR) PSA-Total 2.60 <=3.90 ng/mL Comment: Interpretive Data AGE SEX REFERENCE INTERVAL 0 minutes-150 years Female None 0 minutes-49 years Male None 50-59 years Male 0-3.90 60-69 years Male 0-5.40 70-79 years Male 0-6.20 80-150 years Male 0-6.20 The Stephani PSA Total assay procedure was used. Results from different manufacturers or methods may not be comparable. Serial testing should be performed using the same method. Current interpretive data last revised 22. Testing performed by: [address] [id number] Blood 10/04/2024 8:24 AM BOOSTER PUMP OPERATOR 10/04/2024 11:48 AM BOOSTER PUMP OPERATOR Meenu Gant DIRECTOR DANCE LAB BLOOD ORDERABLES Final Result Performing Organization Address City/[facility]/ZIP Co de Phone Number [facility] ([facility]) [address] [place] [address] * (ABNORMAL) Albumin Creatinine Ratio, Urine (10/04/2024 8:24 AM BOOSTER PUMP OPERATOR) Albumin Ur 83.7 mg/L Comment: Interpretive Data No reference range established. Current interpretive data was last revised 2019. Testing performed by: [address] [id number] Creatinine Ur 137.5 mg/dL [facility] ([facility]) Comment: Interpretive Data No reference range established. Current interpretive data was last revised 2019. Testing performed by: [address] [id number] Albumin Creatinine Ratio, Ur 61(H) 1 - 29 mg/g [facility] ([facility]) Comment:Testing performed by : [address] [id number] Urine 10/04/2024 8:24 AM BOOSTER PUMP OPERATOR 10/04/2024 11:48 AM BOOSTER PUMP OPERATOR Meenu Gant DIRECTOR DANCE LAB URINE ORDERABLES Final Result Performing Organization Address [facility] Co de Phone Number [facility] ([facility]) [address] [place] [address] * (ABNORMAL) Lipid panel (10/04/2024 8:24 AM BOOSTER PUMP OPERATOR) Cholesterol 164 30 - 199 mg/dL Comment: Interpretive Data Ages < or = 19 years Acceptable: <170 mg/dL Borderline high: 170-199 mg/dL High: >or= 200 mg/dL Ages > or = 20 years Desirable: <200 mg/dL Borderline high: 200-239 mg/dL High: >or= 240 mg/dL Literature References: 1. Expert Panel on Integrated Guidelines for Cardiovascular Health and Risk Reduction in Children and Adolescents. Pediatrics 2011;128:S213 2. NCEP Expert Panel. Circulation 2004;110:227 Current Interpretive Data was last revised on 2018. Testing performed by: [facility], [address] [place] [address]., [id number] Triglycerides 199(H) <=149 mg/dL [facility] ([facility]) Comment: Interpretive Data Ages < or = 9 years Acceptable: <75 mg/dL Borderline high: 75-99 mg/dL High: >or= 100 mg/dL Ages 10 to 20 years Acceptable: <90 mg/dL Borderline high: 90-129 mg/dL High: >or= 130 mg/dL Ages > or = 20 years Desirable: <150 mg/dL Borderline high: 150-199 mg/dL High: 200-499 mg/dL Very high: >or= 499 mg/dL Literature References: 1. Expert Panel on Integrated Guidelines for Cardiovascular Health and Risk Reduction in Children and Adolescents. Pediatrics 2011;128:S213 2. NCEP Expert Panel. Circulation 2004;110:227 Current Interpretive Data was last revised on 2018. Testing performed by: [facility], [address] [place] [address]., [id number] HDL 32(L) >=40 mg/dL [facility] ([facility]) Comment: Interpretive Data Ages < or = 19 years Acceptable: >45 mg/dL Borderline low: 40-45 mg/dL Low: <40 mg/dL Ages > or = 20 years Desirable: >or= 60 mg/dL Low: <40 mg/dL Literature References: 1. Expert Panel on Integrated Guidelines for Cardiovascular Health and Risk Reduction in Children and Adolescents. Pediatrics 2011;128:S213 2. NCEP Expert Panel. Circulation 2004;110:227 Current Interpretive Data was last revised on 2018. Testing performed by: [facility], [address] [place] [address]., [id number] LDL, calculated 98 <=129 mg/dL [facility] ([facility]) Comment: Interpretive Data Ages < or = 19 years Acceptable: <110 mg/dL Borderline high: 110-129 mg/dL High: >or= 130 mg/dL Ages > or = 20 years Optimal: <100 mg/dL Near optimal: 100-129 mg/dL Borderline high: 130-159 mg/dL High: >160 mg/dL Calculated using the De La Rosa LDL-C estimating equation. This equation was implemented on 2024. Prior to this date LDL-C was estimated using the Friedewald equation. Literature References: 1. Expert Panel on Integrated Guidelines for Cardiovascular Health and Risk Reduction in Children and Adolescents. Pediatrics 2011;128:S213 2. NCEP Expert Panel. Circulation 2004;110:227 3. Rj Kimble et al. JOE Cardiol. 2019February 20;5(5):540-548. doi: 10.1001/jamacardio.2020.0013 Current Interpretive Data was last revised on 2024. Testing performed by: [facility], [address] [place] [address]., [id number] Non-HDL Cholesterol 132 mg/dL MILTON JULIO (MAGGI) Comment: Interpretive Data Ages < or = 19 years Acceptable: <120 mg/dL Borderline high: 120-144 mg/dL High: >145 mg/dL Ages > or = 20 years When triglycerides are >200 mg/dL, Non-HDL cholesterol is a secondary target of therapy with treatment goals that are 30 mg/dL greater than the LDL cholesterol target. Literature References: 1. Expert Panel on Integrated Guidelines for Cardiovascular Health and Risk Reduction in Children and Adolescents. Pediatrics 2011;128:S213 2. NCEP Expert Panel. Circulation 2004;110:227 Current Interpretive Data was last revised on 2018. 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 10/04/2024 11:48 AM BOOSTER PUMP OPERATOR us Meenu Gant NP LAB BLOOD ORDERABLES Final Result MILTON JULIO (MAGGI) 1 [facility] [place] [address] from Last 3 Months or Most Recently Relevant to Health Maintenance Insurance [facility] HMO/PPO Address: [address] [address] [place] [address] [facility] [employer] WORK[employer] COMPENSATION GENERIC WORKERS COMPENSATION GENERIC Care Teams Home Health Lvn Relationship Specialty Start Date End Date Daljit Lopez MD [address] [place] [address] PCP - General Family Medicine 12/09/19 Eleonora Leonard PA [address] [place] [address] Orthopedic Surgery 04/06/20
--- OUTSIDE RECORDS SUMMARY | 2025-06-16 13:55 | XMS_ITS | Clinical Summary ---
Author Organization [facility] Address [address] [place] [address] Phone Care Team Providers Care Emergency Medical Tech Name Role Phone Nik Rahman MD Primary Care Provider [phone] Allergies No known active allergies Medications POTASSIUM CHLORIDE PO Take by mouth. Active MAGNESIUM PO Take by mouth. Active sildenafil citrate (VIAGRA) 100 MG Tablet TK 1 T PO QD PRN 5 9 Active ondansetron (ZOFRAN-ODT) 4 MG TABLET DISPERSIBLE Take 1 Tab by mouth every 6 hours as needed for Nausea - 1st line. 10 Tab 9 Active polyethylene glycol (GLYCOLAX, MIRALAX) Pack Take 1 Packet by mouth daily as needed for Constipation. Dissolve in 4-8 oz of liquid. 90 Packet 9 Active Active Problems Problem Noted Date Diagnosed Date Acute renal failure (ARF) 06/19/2019 UTI (urinary tract infection) 06/19/2019 Rhabdomyolysis 06/19/2019 Heat exhaustion 06/19/2019 Lactic acidosis 06/19/2019 Family History Medical History Relation Name Comments Chronic Obstructive Pulmonary Disease Mother Rheumatoid Arthritis Mother Relation Name Status Comments Father Mother Social History Tobacco Use Types Packs/Day Years Used Date Smoking Tobacco: Every Day Cigarettes Smokeless Tobacco: Never Tobacco Cessation:Ready to Q uit: No; Counseling Given: No Alcohol Use Standard Drinks/Week Comments Yes 0 (1 standard drink = 0.6 oz pur e alcohol) very rarely Sexually Active Control Partners Comments Yes Female Sex and Gender Information Value Date Recorded Sex Assigned at Not on file Legal Sex Male 9:34 PM CDT Gender Identity Not on file Sexual Orientation Not on file Last Filed Vital Signs Vital Sign Reading Time Taken Comments Blood Pressure 117/56 06/19/2019 6:53 AM CDT Pulse 68 06/19/2019 8:17 AM CDT Temperature 36.4 C (97.5 F) 06/19/2019 6:53 AM CDT Respiratory Rate 18 06/19/2019 8:17 AM CDT Oxygen Saturation 93% 06/19/2019 8:17 AM CDT Inhaled Oxygen Concentration - - Weight 112 kg (247 lb) 06/19/2019 1:47 AM CDT Height 193 cm (6' 4) 06/19/2019 1:47 AM CDT Body Mass Index 30.07 06/19/2019 1:47 AM CDT Plan of Treatment Health Maintenance Due Date Last Done Comments Hepatitis C Virus (HCV) Screening 1973 TdaP Immunization 1973 Hepatitis B Immunization (1 of 3 - 19+ 3-dose series) 1992 Cologuard 2018 Colonoscopy 2018 Colorectal Cancer Screening 2018 Immunochemical Fecal Occult Blood 2018 Pneumococcal Immunization (5 0+ years) (1 of 1 - PCV) 2023 Zoster Immunization (1 of 2) 2023 SARS-COV-2 Immunization (2 - season) 2024 11/01/2021 Influenza Immunization (#1) 2025 Respiratory Syncytial Virus (RSV) Immunization (Adult) (1 - 1-dose 75+ series) 2048 Human Papillomavirus (HPV) Immunization Aged Out No longer eligible b ased on patient's age to complete this topic Meningococcal Immunization (ACWY) Aged Out No longer eligible based on patient's age to complete this topic Rotavirus Immunization Aged Out No lo nger eligible based on patient's age to complete this topic Insurance Advance Directives * Full Code (Latest Code Status on File) Date Activated Date Inactivated Comments 06/19/2019 3:29 AM 06/19/2019 5:17 PM CPR-Full Regulo atment: FULL ARREST: Attempt Resuscitation/CPR wit intubation and mechanical ventilation. PRE-ARREST: Use entire range of life support measures to stabilize the patient. Care Teams Emergency Medical Tech Relationship Specialty Start Date End Date Nik Rahman MD [address] [place] [address] [address] [place] [address] PCP - General Family Medicine 01/07/19
[2025-06-16 14:03] VITALS: BP 111/61; PULSE 78; RESP 20; TEMP 36.9; O2SAT 99
--- NOTE | 2025-06-16 14:09 | ED_ITS ---
HPI - General Adult General Stated complaint: Stomach Injury Time Seen by Provider: 06/16/25 14:11 Source: patient and RN notes reviewed Mode of arrival: ambulatory Limitations: no limitations History of Present Illness HPI narrative: 50-year-old male presented for complaint of right-sided abdominal pain following an injury today at work. Endorses mild swelling to the area. He states he was swinging a sledgehammer at work, missed the object and struck himself in the right lower abdomen. Says the pain initially dropped him to his knees and pain radiated to the right testicle, which is now resolved. Currently rates pain 4/10. Denies any associated nausea, vomiting, hematochezia, bruising to the abdomen or dizziness. Related Data Home Medications ?Medication ?Instructions ?Recorded ?Confirmed ?Last Taken ?Type atorvastatin 40 mg tablet mg 06/16/25 Unknown History ergocalciferol (vitamin D2) 1,250 06/16/25 Unknown H istory mcg (50,000 unit) capsule gabapentin 300 mg capsule mg 06/16/25 Unknown History glipizide 10 mg tablet mg 06/16/25 Unknown History metformin 500 mg tablet,extended mg PO 06/16/25 Unkno wn History release 24 hr omeprazole 20 mg capsule,delayed mg 06/16/25 Unknown History release Allergies Allergy/AdvReac Type Severity Reaction Status Date / Time erythromycin base Allergy Unknown Rash Unverified 06/16/25 14:10 Review of Systems 2 Review of Systems: CONSTITUTIONAL: Denies body aches, fever, chills CARDIOVASCULAR: Denies chest pain, palpitations, or edema. RESPIRATORY: Denies cough or dyspnea. GASTROINTESTINAL: Endorses abdominal pain Denies , nausea, vomiting, diarrhea, hematochezia, melena, hematemesis GENITOURINARY: Denies dysuria, hematuria, or CVA tenderness. SKIN: Denies wounds. MUSCULOSKELETAL: Denies back pain, joint pain, or myalgia. NEUROLOGIC: Denies headache, numbness, tingling, or weakness. All systems reviewed & are unremarkable except as noted in HPI and below PMFSH Comments At time of signature, I have reviewed and agree with nursing past medical, surgical, social and family history unless otherwise noted. Please see nursing chart for further information. There is no relevant family history pertinent to the presenting complaint Exam 2 Narrative: GENERAL: Well-appearing, and in no acute distress. EYES: EOMI. Conjunctivae normal. ENT: Mucous membranes pink and moist. CHEST: No respiratory distress. Clear to auscultation. HEART: Regular rate and rhythm. No murmur appreciated. Normal peripheral pulses. ABDOMEN: abd soft, nondistended, normal active bowel sounds. Mildly Tender abdomen to right lower/mid area. No guarding, rebound tenderness, asymmetry EXTREMITIES: Normal range of motion. No edema. SKIN: Warm, dry, no rash. Capillary refill normal. Normal skin turgor. NEURO: No focal deficits. Alert and oriented x3. PSYCH: Normal affect. GI: Abdomen image: 1. mild swelling and tenderness Course Course Emergency Course: Patient is aware of diagnosis, understands and agrees to treatment plan. Anticipatory guidance given. Patient agrees to follow-up as directed and is aware of reasons to seek care at the emergency department. Portions of this record may have been created with voice recognition software Level of Care: Express Care Visit Medical Decision Making MDM Narrative Medical decision making narrative: Discussed physical exam findings; mild swelling to right abdomen. No bruising. VSS. Pt is aware of the option to transfer to ER for CT imaging, he declines at this time and will monitor. Declines xray. Advised supportive measures and signs/symptoms to go to the ER. Pt is appropriate for outpt treatment and f/u. Differential Diagnosis Differential Diagnosis: abdominal trauma, contusion, hemorrhage, bowel obstruction or perforation, cholecystitis, appendicitis, hernia, mesenteric ischemia, pancreatitis, peritonitis, AAA Discharge Plan Discharge Clinical Impression: Abdominal trauma Patient Disposition: Home Condition: Stable Instructions: Blunt Abdominal Injury (ED) Additional Instructions: We discussed appropriate imaging would be in the emergency room. You decline to go to the ER at this time. You may experience signs such as mild pain, tenderness, swelling, and bruising to the abdomen You must go to the ER for more severe signs like severe pain in the abdomen, severe bruising in the abdomen, bloating, nausea, vomiting, blood in urine or stool, pale and cold skin, a fast heart rate, and low blood pressure. These signal a medical emergency.? Ok to take Tylenol for pain Avoid lifting, pushing, pulling until pain is resolved. Follow up with your primary care provider as needed in 1 week Go to the ER for worsening symptoms or concerns Patient Language: Kiswahili Prescriptions: No Action liothyronine 5 mcg tablet 5 mcg PO DAILY Qty: 30 0RF Follow-up/Referrals: Harms,Daljit Gonzalez M.D. [Primary Care Provider] Time of Disposition: 14:24
== END 2025-06-16 14:28 | disposition home or self-care (01) ==
PROVIDERS: Emergency Provider Nurse Practitioner Family; PCP Family Medicine
DX: S39.91XA Unspecified injury of abdomen, initial encounter (principal); W27.8XXA Contact with other nonpowered hand tool, initial encounter; E78.00 Pure hypercholesterolemia, unspecified; K21.9 Gastro-esophageal reflux disease without esophagitis; E11.42 Type 2 diabetes mellitus with diabetic polyneuropathy; Z79.84 Long term (current) use of oral hypoglycemic drugs
CPT/HCPCS: 99202; G0463